=== PATIENT | male | born 1960 | race Caucasian/White ===

== ENCOUNTER 2021-11-18 14:38 | Observation (INO) ==
[2021-11-18 20:15] LABS: ABS Lymphocytes 1.1 10^3/ul (1.0-4.8); ABS Monocytes 0.8 10^3/ul (0-0.8); ABS Neutrophils 7.2 10^3/ul (1.5-7.7); Hematocrit 42 % (42-52); Hemoglobin 14.5 g/dL (14.0-18.0); Lymphocyte % 12.1 %; Mean Corpuscular HGB Conc 35 g/dL (31-36); Mean Corpuscular Hemoglobin 30 pg (27-31); Mean Corpuscular Volume 87 fL (80-94); Mean Platelet Volume 7.3 fL (7.4-10.4); Nucleated Red Blood Cells % 0.2; Platelet Count 200 10^3/uL (150-450); Red Blood Count 4.78 10^6 /uL (4.18-5.48); Red Cell Distribution Width 13 % (10-15); White Blood Count 9.2 10^3/uL (3.5-10.8)
[2021-11-18] MEDS ORDERED: Lactated Ringers 1000 ml BAG 1,000 ML IV ONE (20:23)
[2021-11-18 20:34] LABS: Albumin 3.2 g/dL (3.2-5.2); Albumin/Globulin Ratio 0.9 (1-3); C Reactive Protein 148.92 mg/L (<8.01); Calcium 8.7 mg/dL (8.6-10.3); Globulin 3.4 g/dL (2-4); Potassium 3.8 mmol/L (3.5-5.0); Total Bilirubin 1.3 mg/dL (0.2-1.0); Total Protein 6.6 g/dL (6.4-8.9); eGFR CKD-EPI 98.5 (>60)
[2021-11-18 20:35] LABS: Troponin I 0.01 ng/mL (<0.03)
[2021-11-18] MEDS ORDERED: Dexamethasone IV 4 MG/ML VIAL 1 ml VIAL IV SLOW PU ONE (21:10)
[2021-11-18] MEDS ORDERED: Iohexol 350 (CONTRAST) 500 ML MDV IV ONE (21:57)
[2021-11-19] MEDS: Enoxaparin 40 MG/0.4 ML SYR SUBCUT SCH (02:32)
[2021-11-20 07:54] LABS: Albumin 3.1 g/dL (3.2-5.2); Albumin/Globulin Ratio 0.9 (1-3); Calcium 9.1 mg/dL (8.6-10.3); Globulin 3.3 g/dL (2-4); Potassium 4.7 mmol/L (3.5-5.0); Total Bilirubin 0.6 mg/dL (0.2-1.0); Total Protein 6.4 g/dL (6.4-8.9); eGFR CKD-EPI 101.5 (>60)
[2021-11-20 08:28] VITALS: BP 107/69
[2021-11-20] MEDS: Enoxaparin 40 MG/0.4 ML SYR SUBCUT SCH (08:31)
== END 2021-11-20 14:35 | disposition home or self-care (01) ==
LOC: MED 14:38 → ED 14:38 → SUATTDRO 11-19 01:31
PROVIDERS: ADMIT Hospitalist; ATTEND Student in an Organized Health Care Education/Training Program

== ENCOUNTER 2022-01-02 18:48 | Inpatient (IN) ==
[2022-01-02] MEDS ORDERED: Lidocaine 2% 10 ML VIAL INJ ONE (20:04)
[2022-01-02] MEDS ORDERED: Lidocaine 1% VIAL 10 MG/ML VIAL ONE (20:06)
[2022-01-02 20:17] LABS: ABS Lymphocytes 0.8 10^3/ul (1.0-4.8); ABS Monocytes 0.6 10^3/ul (0-0.8); ABS Neutrophils 6.9 10^3/ul (1.5-7.7); Eosinophil % 0.4 %; Hematocrit 39 % (42-52); Hemoglobin 13.3 g/dL (14.0-18.0); Lymphocyte % 9.5 %; Mean Corpuscular HGB Conc 34 g/dL (31-36); Mean Corpuscular Hemoglobin 30 pg (27-31); Mean Corpuscular Volume 89 fL (80-94); Mean Platelet Volume 6.4 fL (7.4-10.4); Platelet Count 349 10^3/uL (150-450); Red Blood Count 4.41 10^6 /uL (4.18-5.48); Red Cell Distribution Width 15 % (10-15); White Blood Count 8.3 10^3/uL (3.5-10.8)
[2022-01-02 20:29] LABS: Activated Partial Thrombo Time 35.9 seconds (26.0-38.0); INR 1.36 (0.86-1.15)
[2022-01-02 20:33] LABS: Albumin 3.8 g/dL (3.2-5.2); Albumin/Globulin Ratio 1.2 (1-3); C Reactive Protein 80.41 mg/L (<8.01); Calcium 9.3 mg/dL (8.6-10.3); Globulin 3.2 g/dL (2-4); Total Bilirubin 1.2 mg/dL (0.2-1.0); eGFR CKD-EPI 102.7 (>60)
[2022-01-02 20:35] LABS: Troponin I 0.01 ng/mL (<0.03)
[2022-01-02] MEDS ORDERED: Lidocaine 1% MPF 5 ML VIAL INJ ONE (20:52)
[2022-01-02] MEDS ORDERED: Lidocaine 1% VIAL 10 MG/ML VIAL INJ ONE (20:54)
[2022-01-02 21:22] LABS: Urine Appearance Cloudy; Urine Bilirubin Negative (Negative); Urine Blood Negative (Negative); Urine Color Yellow; Urine Glucose Negative (Negative); Urine Ketones Trace (Negative); Urine Nitrite Negative (Negative); Urine Protein Negative (Negative); Urine Specific Gravity 1.014 (1.002-1.030); Urine Urobilinogen Negative (Negative)
[2022-01-02 21:31] LABS: Urine Bacteria Absent (Absent); Urine Red Blood Cell 1+(3-5/hpf) (Absent); Urine White Blood Cell 3+(>20/hpf) (Absent)
[2022-01-02 22:09] LABS: Body Fluid WBC 22598 /mcL
[2022-01-02 22:14] LABS: Body Fluid Appearance Cloudy; Body Fluid Color Yellow; Body Fluid Mono 4 %; Body Fluid Other Cells 1; Body Fluid Source Synovial Fluid; Body Fluid Total Cells Counted 200
[2022-01-02 22:24] LABS: Erythrocyte Sed Rate 54 mm/Hr (0-19)
[2022-01-02] MEDS ORDERED: Vancomycin 1,500 MG in NS 0.9% 250 ml 250 ML IVPB ONE (23:40)
[2022-01-02] MEDS ORDERED: Vancomycin per Pharmacy 1 EA NOTE FOLLOW UP PRN (23:47)
[2022-01-02] MEDS ORDERED: Albuterol HFA INHALER 8 gm MDI INH PRN (23:47)
[2022-01-03] MEDS ORDERED: Enoxaparin 100 MG/ML SYR SUBCUT ONE (00:07)
[2022-01-03] MEDS ORDERED: Lactated Ringers 1000 ml BAG 1,000 ML IV ONE (00:09)
[2022-01-03] MEDS ORDERED: NS 0.9% 250 ml 250 ML ONE (00:51)
[2022-01-03] MEDS: Lactated Ringers 1000 ml BAG 1,000 ML IV SCH ×3 (01:29→06:44)
[2022-01-03 03:29] LABS: ABS Basophils 0.1 10^3/ul (0-0.2); ABS Lymphocytes 1.1 10^3/ul (1.0-4.8); ABS Monocytes 0.7 10^3/ul (0-0.8); ABS Neutrophils 4.4 10^3/ul (1.5-7.7); Eosinophil % 0.2 %; Hematocrit 33 % (42-52); Hemoglobin 11.4 g/dL (14.0-18.0); Lymphocyte % 18.1 %; Mean Corpuscular HGB Conc 35 g/dL (31-36); Mean Corpuscular Hemoglobin 30 pg (27-31); Mean Corpuscular Volume 87 fL (80-94); Mean Platelet Volume 6.6 fL (7.4-10.4); Platelet Count 291 10^3/uL (150-450); Red Blood Count 3.77 10^6 /uL (4.18-5.48); Red Cell Distribution Width 15 % (10-15); White Blood Count 6.3 10^3/uL (3.5-10.8)
[2022-01-03 03:39] LABS: Calcium 8.6 mg/dL (8.6-10.3); Potassium 3.9 mmol/L (3.5-5.0); eGFR CKD-EPI 107.7 (>60)
[2022-01-03 06:37] LABS: Urine Appearance Cloudy; Urine Bilirubin Negative (Negative); Urine Blood 2+ (Negative); Urine Color Yellow; Urine Glucose Negative (Negative); Urine Ketones Negative (Negative); Urine Nitrite Negative (Negative); Urine Protein Negative (Negative); Urine Specific Gravity 1.003 (1.002-1.030); Urine Urobilinogen Negative (Negative)
[2022-01-03 06:41] LABS: Urine Bacteria 1+ (Absent); Urine Red Blood Cell 2+(6-10/hpf) (Absent); Urine Squamous Epithelial Cell Present (Absent); Urine White Blood Cell 3+(>20/hpf) (Absent)
[2022-01-03] MEDS ORDERED: Magnesium CITRATE LIQ 300 ML BTL PO ONE (07:00)
[2022-01-03 07:10] LABS: Magnesium 1.6 mg/dL (1.9-2.7)
[2022-01-03] MEDS: cefTRIAXone 1 gm/50 mL NS BAG 1 GM/50 ML BAG IVPB SCH (09:50)
[2022-01-03] MEDS: Polyethylene Glycol 3350 17 GM PACKET PO SCH (11:37)
[2022-01-03] MEDS: Vancomycin 1,250 MG in NS 0.9% 250 ml 250 ML IVPB SCH ×2 (11:40→17:53)
[2022-01-03] MEDS: Enoxaparin 80 MG/0.8 ML SYR SUBCUT SCH (20:18)
[2022-01-04] MEDS: Lactated Ringers 1000 ml BAG 1,000 ML IV SCH ×2 (00:06→11:56)
[2022-01-04] MEDS: Vancomycin 1,250 MG in NS 0.9% 250 ml 250 ML IVPB SCH ×3 (01:11→16:28)
[2022-01-04] MEDS: cefTRIAXone 1 gm/50 mL NS BAG 1 GM/50 ML BAG IVPB SCH (09:01)
[2022-01-04] MEDS ORDERED: Vancomycin Trough Check NOTE FOLLOW UP ONE (09:30)
[2022-01-04 09:45] LABS: eGFR CKD-EPI 112.1 (>60)
[2022-01-04 09:54] LABS: Vancomycin Trough 11.7 mcg/mL
[2022-01-04] MEDS: Polyethylene Glycol 3350 17 GM PACKET PO SCH (10:31)
[2022-01-04] MEDS: Enoxaparin 80 MG/0.8 ML SYR SUBCUT SCH (10:31)
[2022-01-05] MEDS: Vancomycin 1,250 MG in NS 0.9% 250 ml 250 ML IVPB SCH ×3 (01:59→17:26)
[2022-01-05 06:47] LABS: ABS Eosinophils 0.1 10^3/ul (0-0.6); ABS Lymphocytes 0.8 10^3/ul (1.0-4.8); ABS Monocytes 0.4 10^3/ul (0-0.8); ABS Neutrophils 2.3 10^3/ul (1.5-7.7); Eosinophil % 3.1 %; Hematocrit 32 % (42-52); Hemoglobin 10.8 g/dL (14.0-18.0); Lymphocyte % 20.7 %; Mean Corpuscular HGB Conc 34 g/dL (31-36); Mean Corpuscular Hemoglobin 30 pg (27-31); Mean Corpuscular Volume 88 fL (80-94); Mean Platelet Volume 6.7 fL (7.4-10.4); Platelet Count 292 10^3/uL (150-450); Red Blood Count 3.59 10^6 /uL (4.18-5.48); Red Cell Distribution Width 15 % (10-15); White Blood Count 3.7 10^3/uL (3.5-10.8)
[2022-01-05 07:08] LABS: Calcium 8.2 mg/dL (8.6-10.3); Magnesium 1.9 mg/dL (1.9-2.7); Potassium 3.5 mmol/L (3.5-5.0)
[2022-01-05] MEDS: cefTRIAXone 1 gm/50 mL NS BAG 1 GM/50 ML BAG IVPB SCH (08:05)
[2022-01-05] MEDS: Polyethylene Glycol 3350 17 GM PACKET PO SCH (10:12)
[2022-01-05 13:57] LABS: C Reactive Protein 104.52 mg/L (<8.01)
[2022-01-05 14:05] LABS: Body Fluid Appearance Cloudy; Body Fluid Color Amber; Body Fluid Source Synovial Fluid
[2022-01-05 15:54] LABS: Body Fluid Mono 5 %; Body Fluid Total Cells Counted 200
[2022-01-05 16:05] LABS: Body Fluid WBC 11700 /mcL
[2022-01-06] MEDS: Vancomycin 1,250 MG in NS 0.9% 250 ml 250 ML IVPB SCH ×3 (01:57→18:34)
[2022-01-06 05:56] LABS: Hematocrit 31 % (42-52); Hemoglobin 10.4 g/dL (14.0-18.0); Mean Corpuscular HGB Conc 34 g/dL (31-36); Mean Corpuscular Hemoglobin 30 pg (27-31); Mean Corpuscular Volume 87 fL (80-94); Mean Platelet Volume 6.4 fL (7.4-10.4); Platelet Count 291 10^3/uL (150-450); Red Blood Count 3.54 10^6 /uL (4.18-5.48); Red Cell Distribution Width 15 % (10-15); White Blood Count 4.2 10^3/uL (3.5-10.8)
[2022-01-06 06:17] LABS: Calcium 8.4 mg/dL (8.6-10.3); Magnesium 1.9 mg/dL (1.9-2.7); Potassium 3.6 mmol/L (3.5-5.0); eGFR CKD-EPI 112.1 (>60)
[2022-01-06] MEDS ORDERED: DiMENhydriNATE IV 50 mg/ml 1 ml VIAL IV PUSH PRN (08:33)
[2022-01-06] MEDS ORDERED: Naloxone 0.4 mg VIAL 0.4 mg/ml 1 ml VIAL IV PRN ×2 (08:33→14:34)
[2022-01-06] MEDS ORDERED: fentaNYL 100 mcg/2 ml 50 MCG/ML VIAL IV PRN ×2 (08:33→14:34)
[2022-01-06] MEDS ORDERED: Ondansetron 4 mg VIAL 2 MG/ML 2 ml VIAL IV PRN ×2 (08:33→14:34)
[2022-01-06] MEDS ORDERED: oxyCODONE/Acetamin 5/325 mg TAB PO PRN (08:33)
[2022-01-06] MEDS: cefTRIAXone 1 gm/50 mL NS BAG 1 GM/50 ML BAG IVPB SCH (09:40)
[2022-01-06] MEDS: Polyethylene Glycol 3350 17 GM PACKET PO SCH (09:42)
[2022-01-06] MEDS ORDERED: Magnesium Hydroxide LIQ 30 ML UDC PO ONE (11:02)
[2022-01-06] MEDS ORDERED: Senna TAB 8.6 mg TAB PO ONE (11:02)
[2022-01-06] MEDS ORDERED: Magnesium Hydroxide LIQ 30 ML UDC PO PRN (11:03)
[2022-01-06] MEDS ORDERED: Senna TAB 8.6 mg TAB PO PRN (11:03)
[2022-01-06] MEDS ORDERED: Bupivacaine 0.5% SDV PF 30ML VIAL ONE (12:27)
[2022-01-06] MEDS ORDERED: fentaNYL 100 mcg/2 ml 50 MCG/ML VIAL ONE (12:58)
[2022-01-06] MEDS ORDERED: Lidocaine 2% PF 5 ML VIAL ONE (12:58)
[2022-01-06] MEDS ORDERED: Propofol 10 MG/ML 20 ML BTL ONE (12:58)
[2022-01-06 14:54] LABS: B. garinii/B. afzellii PCR Negative (Negative); Lyme Disease Source SYNOVIAL FLUID
[2022-01-07] MEDS: Vancomycin 1,250 MG in NS 0.9% 250 ml 250 ML IVPB SCH ×3 (02:10→17:52)
[2022-01-07 05:58] LABS: ABS Lymphocytes 0.7 10^3/ul (1.0-4.8); ABS Monocytes 0.2 10^3/ul (0-0.8); ABS Neutrophils 3.9 10^3/ul (1.5-7.7); Eosinophil % 0.2 %; Hematocrit 33 % (42-52); Hemoglobin 11.2 g/dL (14.0-18.0); Lymphocyte % 13.7 %; Mean Corpuscular HGB Conc 34 g/dL (31-36); Mean Corpuscular Hemoglobin 30 pg (27-31); Mean Corpuscular Volume 88 fL (80-94); Mean Platelet Volume 6.4 fL (7.4-10.4); Platelet Count 314 10^3/uL (150-450); Red Blood Count 3.78 10^6 /uL (4.18-5.48); Red Cell Distribution Width 15 % (10-15); White Blood Count 4.8 10^3/uL (3.5-10.8)
[2022-01-07 06:20] LABS: CRP High Sensitivity 51.63 mg/L (<2.00); Calcium 8.9 mg/dL (8.6-10.3); Potassium 4.4 mmol/L (3.5-5.0); eGFR CKD-EPI 114.7 (>60)
[2022-01-07] MEDS ORDERED: Vancomycin Trough Check NOTE FOLLOW UP ONE (09:30)
[2022-01-07 09:43] LABS: Erythrocyte Sed Rate 74 mm/Hr (0-19)
[2022-01-07] MEDS: Polyethylene Glycol 3350 17 GM PACKET PO SCH (09:58)
[2022-01-08] MEDS: Vancomycin 1,250 MG in NS 0.9% 250 ml 250 ML IVPB SCH ×2 (03:16→11:09)
[2022-01-08 05:53] LABS: Hematocrit 32 % (42-52); Hemoglobin 10.8 g/dL (14.0-18.0); Mean Corpuscular HGB Conc 34 g/dL (31-36); Mean Corpuscular Hemoglobin 30 pg (27-31); Mean Corpuscular Volume 88 fL (80-94); Mean Platelet Volume 6.3 fL (7.4-10.4); Platelet Count 329 10^3/uL (150-450); Red Blood Count 3.66 10^6 /uL (4.18-5.48); Red Cell Distribution Width 15 % (10-15); White Blood Count 4.4 10^3/uL (3.5-10.8)
[2022-01-08 06:10] LABS: CRP High Sensitivity 26.44 mg/L (<2.00); Calcium 8.7 mg/dL (8.6-10.3); Potassium 3.9 mmol/L (3.5-5.0); eGFR CKD-EPI 112.8 (>60)
[2022-01-08 07:23] LABS: Erythrocyte Sed Rate 53 mm/Hr (0-19)
[2022-01-08] MEDS: Polyethylene Glycol 3350 17 GM PACKET PO SCH (08:44)
[2022-01-09] MEDS: Vancomycin 1,250 MG in NS 0.9% 250 ml 250 ML IVPB SCH ×3 (02:40→10:35)
[2022-01-09 04:45] LABS: Hematocrit 32 % (42-52); Hemoglobin 10.5 g/dL (14.0-18.0); Mean Corpuscular HGB Conc 33 g/dL (31-36); Mean Corpuscular Hemoglobin 29 pg (27-31); Mean Corpuscular Volume 89 fL (80-94); Mean Platelet Volume 6.4 fL (7.4-10.4); Platelet Count 321 10^3/uL (150-450); Red Blood Count 3.58 10^6 /uL (4.18-5.48); Red Cell Distribution Width 15 % (10-15)
[2022-01-09 05:02] LABS: CRP High Sensitivity 15.48 mg/L (<2.00); Calcium 8.7 mg/dL (8.6-10.3); Potassium 3.7 mmol/L (3.5-5.0); eGFR CKD-EPI 115.4 (>60)
[2022-01-09 06:17] LABS: Erythrocyte Sed Rate 47 mm/Hr (0-19)
[2022-01-09] MEDS: Polyethylene Glycol 3350 17 GM PACKET PO SCH (08:32)
[2022-01-09 12:13] VITALS: BP 109/70
[2022-01-11] MEDS ORDERED: Vancomycin Trough Check NOTE FOLLOW UP ONE (09:30)
== END 2022-01-09 13:45 | disposition home or self-care (01) | DRG 710 ==
LOC: MEDTELE 18:48 → ED 18:48 → SUATTDRO 23:43 → MEDTELE 01-03 03:32 → SUATTDRO 01-03 18:38
PROVIDERS: ADMIT Internal Medicine; ATTEND Internal Medicine